=== PATIENT | female | born 1955 | race African-American/Black ===

== ENCOUNTER 2024-06-27 12:36 | Emergency (ER) | payer MEDICARE ==
[~2024-06-27] VITALS: Ht 167.6 cm; Wt 86.2 kg
[2024-06-27] MEDS ORDERED: CLONAZEPAM1 MG PO (13:42)
[2024-06-27] MEDS ORDERED: LUNESTA3 MG PO (13:42)
[2024-06-27] MEDS ORDERED: PROZAC20 MG PO (13:42)
[2024-06-27] MEDS ORDERED: SINGULAIR10 MG PO (13:42)
[2024-06-27] MEDS ORDERED: SPIRIVA18 MCG INH (13:42)
[2024-06-27] MEDS ORDERED: ASPIRIN EC81 MG PO (13:42)
[2024-06-27 15:01] VITALS: PULSE 74; RESP 16; TEMP 97.7; O2SAT 98
== END 2024-06-27 16:16 | disposition other institution (70) ==
LOC: FSED 12:56
DX: S06.5X0A Traumatic subdural hemorrhage without loss of consciousness, initial encounter (principal); W18.09XA Striking against other object with subsequent fall, initial encounter; Y93.84 Activity, sleeping; Y92.89 Other specified places as the place of occurrence of the external cause; I10 Essential (primary) hypertension; R73.03 Prediabetes; J45.909 Unspecified asthma, uncomplicated; F41.9 Anxiety disorder, unspecified; F32.A Depression, unspecified; Z96.643 Presence of artificial hip joint, bilateral
CPT/HCPCS: 70450; 71046; 72125; 80048; 85025; 99284

== ENCOUNTER 2024-12-26 15:49 | Emergency (ER) | payer MEDICARE, MEDICAID ==
[~2024-12-26] VITALS: Ht 167.6 cm; Wt 81.6 kg
[~2024-12-26 15:49] MED LIST: ASPIRIN EC81 MG PO; CLONAZEPAM1 MG PO; LUNESTA3 MG PO; PROZAC20 MG PO; SINGULAIR10 MG PO; SPIRIVA18 MCG INH
[2024-12-26 16:00] VITALS: PULSE 92; RESP 16; TEMP 97.2
[2024-12-26 17:35] VITALS: BP 111/63; PULSE 89; RESP 16; TEMP 98.3; O2SAT 99
== END 2024-12-26 17:36 | disposition home or self-care (01) ==
LOC: FSED 16:21
DX: Z47.89 Encounter for other orthopedic aftercare (principal); M84.43 Pathological fracture, ulna and radius; I10 Essential (primary) hypertension; E11.9 Type 2 diabetes mellitus without complications; E78.5 Hyperlipidemia, unspecified; Z85.028 Personal history of other malignant neoplasm of stomach; Z96.643 Presence of artificial hip joint, bilateral
CPT/HCPCS: 99284